=== PATIENT | male | born 1965 | race Asian ===

== ENCOUNTER 2017-07-12 08:01 | Outpatient (CLI) | payer OTHER ==
--- NOTE | 2017-07-12 13:27 | MRI Report ---
EXAM: RIGHT KNEE MRI WITHOUT CONTRAST EXAM DATE: 07/12/2017 08:48 AM. CLINICAL HISTORY: PAin in unspecified knee. COMPARISON: None. TECHNIQUE: Multiplanar, multisequence T1-weighted and fluid-sensitive sequences of the knee without c ontrast. Other: None. FINDINGS: Cruciate ligaments: The anterior and posterior cruciate ligaments appear intact. Medial meniscus: Intact. No tear is identified. Lateral meniscus: Intact. No tear is identified. Collateral limits: The medial and fibular collateral ligament appear intact. Bones and articular surfaces: Mild cartilage thinning and fissuring within the trochlea. Areas of sli ght cartilage thinning and surface irregularity in the medial and lateral compartments. No full thick ness articular cartilage defects are seen. Mild degree of patchy marrow edema within the patella. The re do not appear to be any significant associated articular cartilage defects. Extensor mechanism: The patellar tendon and quadriceps insertion appear intact. IMPRESSION: 1. Minimal tricompartmental degenerative cartilage changes. 2. Slight degree of patchy marrow edema within the patella. Possible bone contusion or stress-related edema. [facility]CULOSKE[facility] RADIOLOG[facility] SECTION Referring Provider Line: [phone] SITE ID: [id number]
== END 2017-07-12 08:02 | disposition home or self-care (01) ==
LOC: DI 08:01
PROVIDERS: ATTEND Family Medicine
DX: M25.561 Pain in right knee (principal)

== ENCOUNTER 2018-07-09 10:28 | Outpatient (CLI) | payer OTHER | END 2018-07-09 10:29 | disposition home or self-care (01) | LOC: SC 10:28 | PROVIDERS: ATTEND Internal Medicine Pulmonary Disease | DX: G47.33 Obstructive sleep apnea (adult) (pediatric) (principal); E66.9 Obesity, unspecified; Z68.30 Body mass index [BMI] 30.0-30.9, adult | CPT/HCPCS: 99203; 99212 ==

== ENCOUNTER 2018-07-19 19:29 | Outpatient (CLI) | payer OTHER | END 2018-07-19 19:30 | disposition home or self-care (01) | LOC: SC 19:29 | PROVIDERS: ATTEND Internal Medicine Pulmonary Disease | DX: G47.33 Obstructive sleep apnea (adult) (pediatric) (principal) | CPT/HCPCS: 95810 ==

== ENCOUNTER 2018-07-25 09:52 | Outpatient (CLI) | payer OTHER | END 2018-07-25 09:53 | disposition home or self-care (01) | LOC: SC 09:52 | PROVIDERS: ATTEND Nurse Practitioner Family | DX: G47.33 Obstructive sleep apnea (adult) (pediatric) (principal) | CPT/HCPCS: 99212; 99214 ==

== ENCOUNTER 2018-10-24 15:39 | Outpatient (CLI) | payer OTHER ==
[2018-10-24 16:44] VITALS: BP 100/60
--- NOTE | 2018-10-24 16:44 | SLEEP CARE CONSULTATION ---
Information from patient questionnaire entered by Genevieve Veronica. I have reviewed and concur with the information entered by Genevieve Veronica. This document represents the service I personally performed and the decisions made by me, Dbe Mcmanus, RN, MSN, HAND DRAWER IN. History of Present Illness Previous diagnosis: Severe, Obstructive Sleep Apnea-Hypopnea Syndrome AHI: 30.1 Reason for CPAP/BiPAP follow up: first compliance Equipment type: CPAP Equipment obtained from: [employer] Mask style: Nasal pillows (Dreamwear) Mask brand: Respironics Backup mask available: No (keep current mask when replaced as spare) Last cushion change: a month ago CPAP Compliance Data - Data Reviewed with Patient Average duration of nightly device use: 4.6 Compliance rate %: 90 Current pressure setting (cmH2O): 4-15 Humidity settin Heated hose settin Average residual AHI: 2.5 Average large leak: 2 mins 6 secs Subjective Patient concerns: reports: dry mouth, nose, throat (1-2 times a month ), other (patient is not putting mask back on after gets up to the bathroom. ). denies: aerophagia, mask discomfort, air blowing in eyes, mask leak noise, condensation in mask/hose, nasal congestion, epistaxis Observed to snore while using device: No Current pressure setting perceived as: comfortable On therapy, patient: reports: sleeping better, awakening more refreshed, being more awake and alert during the day, more rested overall. denies: drowsiness while driving Initial [place] Sleepiness Scale score: 17 Current [place] Sleepiness Scale score: 8 Allergies and Home Medications Known drug allergies: No Home medication list reviewed: Yes Allergy and home medication list: Metformin 1000 mg tab one twice daily Lisinopril 20mg tab one daily Atorvastatin 40mg tab one daily ProAir HFA 108 (90 base) Two puffs as needed Aspirin 81mg tab one daily Review of Systems Review of systems same as previous: Yes Physical Exam Blood Pressure: 100/60 Cuff size: long Heart Rate: 63 O2 Saturation: 98 Height: 5 ft 7 in Weight (kg): 201 lb 12.8 oz Body Mass Index: 31.6 BMI Classification: Class 1 Impression and Plan 1. Obstructive Sleep Apnea-Hypopnea Syndrome, severe, with good treatment compliance and good apnea control. Since his 90% pressue is 6.7cmH20, I will adjust his autoCPAP pressure to [id number]. He is advised to contact me if the pressure change is uncomfortable. On CPAP therapy, the patient has better sleep quality and is more rested overall. To prevent vent from bothering spouse, he can put a pillow barrier between them. Patient advised to put his mask on after getting up in target network analyst to use the restroom. He was informed how there is increased risk of apnea in later sleep due to REM sleep. He was also advised how maximum benefit of treatment is obtained with use of CPAP with all sleep. For oral dryness, he was shown how to adjust the humidity and heated hose on sample device. For now, he could reduce heated hose to 2 to deliver more moisture and adjust as needed. The heated hose would only need to be increased if condensation. Patient's apnea severity and rationale for treatment to reduce apnea, improve sleep quality and reduce cardiovascular and cerebrovascular events was reviewed. I also reviewed the benefit of consistent device use of CPAP for hypertension, diabetes. Since he is planning on losing weight, he was advised how significant weight loss can reduce CPAP pressure and symptoms to report for adjustment. * * Change CPAP pressure to 7-10 cmH2O * Adjust heated hose / humidity * pillow barrier to reduce vent effect * use CPAP with all sleep * Notify me if snoring with mask or feeling that the pressure is too much or too little * Attempt to lose weight * Return for follow up in 3 months, or sooner if concerns arise I spent 100% of this 30 minute visit face to face with the patient with greater than 50% of this was spent time counseling the patient and coordination of care.
== END 2018-10-24 15:40 | disposition home or self-care (01) ==
LOC: SC 15:39
PROVIDERS: ATTEND Nurse Practitioner Family
DX: G47.33 Obstructive sleep apnea (adult) (pediatric) (principal)
CPT/HCPCS: 99212; 99214

== ENCOUNTER 2019-01-24 13:42 | Outpatient (CLI) | payer OTHER ==
[2019-01-24 15:12] VITALS: BP 120/70
--- NOTE | 2019-01-24 15:12 | SLEEP CARE CONSULTATION ---
Information from patient questionnaire entered by Zehra Mondragon. I have reviewed and concur with the information entered by Zehra Mondragon. This document represents the service I personally performed and the decisions made by me, Deb Mcmanus, RN, MSN, SALES ATTENDANT BUILDING MATERIALS. History of Present Illness Previous diagnosis: Severe, Obstructive Sleep Apnea-Hypopnea Syndrome AHI: 30.1 Reason for follow up: three month Equipment type: CPAP Equipment obtained from: [employer] (contacted but no new supplies since set up) Mask style: Nasal pillows (Dreamwear) Mask brand: Respironics Backup mask available: No (Keep current mask when replaced) Last cushion change: none since set up Prior sleep studies: Yes HPI additional information: The pillow barrier worked to prevent his mask vent waking spouse. The adjustment of humidity and heated hose reduced dryness symptoms. CPAP Compliance Data - Data Reviewed with Patient Average duration of nightly device use: 6h 19m Compliance rate %: 91.1 Current pressure setting (cmH2O): 7-15 Humidity settin Heated hose settin Average residual AHI: 1.9 Average large leak: 26s Subjective Missed days of use due to: reports: travel (airline travel ) Patient concerns: denies: aerophagia, mask discomfort, air blowing in eyes, mask leak noise, condensation in mask/hose, nasal congestion, dry mouth, nose, throat, epistaxis Observed to snore while using device: No Current pressure setting perceived as: comfortable On therapy, patient: reports: sleeping better, awakening more refreshed, being more awake and alert during the day, more rested overall. denies: drowsiness while driving (none since CPAP ) Initial [place] Sleepiness Scale score: 17 Current [place] Sleepiness Scale score: 4 Allergies and Home Medications Known drug allergies: No Home medication list reviewed: Yes Allergy and home medication list: Medication Name (generic/name brand) Strength & Dosage Metformin 1000mg tab one daily Lisinopril 20mg tab one daily Atorvastatin 40mg tab one daily Aspirin 81mg tab one daily Review of Systems Review of systems same as previous: Yes Physical Exam Blood Pressure: 120/70 Cuff size: long Heart Rate: 71 O2 Saturation: 98 Height: 5 ft 7.5 in Weight: 208 lb 12.8 oz Weight change since last visit: gained 7 pounds Body Mass Index: 32.2 BMI Classification: Obesity Class 1 Impression and Plan 1. Obstructive Sleep Apnea-Hypopnea Syndrome, severe, with good treatment compliance and good apnea control. On CPAP therapy, the patient has better sleep quality and is more rested overall. He has more energy and is much more active than before CPAP. Patient has gained weight over holidays. thus I discussed how weight increase can increase his apnea risks and CPAP pressure and over all health risks. He is advised to lose weight. Methods to achieve discussed such as healthy food intake, reduction of refined foods, portion control and tracking diet intake. Weight watchers and other programs that track diet intake with support system and recipe ideas can be helpful. He can also discuss a diet consultation with his PCP. We looked at BMI chart and his goals for weight loss. He felt well at 171 pounds which would bring his BMI down to 25-26. As he loses weight he may need his CPAP pressure range reduced. To anticipate weight loss I will adjust his autoCPAP pressure to [id number]. He is to contact me if the pressure change in uncomfortable. Symptoms to report for further pressure reductions discussed. To reduce air hunger at initiation of therapy, I will reduce ramp time to 15 minutes. In addition, since he is having difficulty getting supplies, I will order and have my sales training coordinator inquire with [facility]. Patient's apnea severity and rationale for treatment to reduce apnea, improve sleep quality and reduce cardiovascular and cerebrovascular events was reviewed. I also reviewed the benefit of consistent device use of CPAP for hypertension, diabetes, gastric reflux, depression/anxiety. He has noted reduced blood pressure reading through out the day. * * Change CPAP pressure to 6-10 cmH2O * Notify me if snoring with mask or feeling that the pressure is too much or too little * reduce ramp time * Update supplies * Attempt to lose weight * Return for follow up in 6 months, or sooner if concerns arise I spent 100% of this 30 minute visit face to face with the patient with greater than 50% of this was spent time counseling the patient and coordination of care.
== END 2019-01-24 13:43 | disposition home or self-care (01) ==
LOC: SC 13:42
PROVIDERS: ATTEND Nurse Practitioner Family
DX: G47.33 Obstructive sleep apnea (adult) (pediatric) (principal)
CPT/HCPCS: 99212; 99214

== ENCOUNTER → 2019-08-26 | Outpatient (CLI) | payer OTHER ==
[2019-08-26 17:09] VITALS: BP 114/78
--- NOTE | 2019-08-26 17:09 | SLEEP CARE CONSULTATION ---
Information from patient questionnaire entered by Zehra Mondragon. I have reviewed and concur with the information entered by Zehra Mondragon. This document represents the service I personally performed and the decisions made by me, Deb Mcmanus, RN, MSN, SLIDER ASSEMBLER. History of Present Illness Service Date and Time: 08/26/2019 1600 Previous diagnosis: Severe, Obstructive Sleep Apnea-Hypopnea Syndrome AHI: 30.1 Reason for follow up: six month Equipment type: CPAP Equipment obtained from: [employer] (getting supplies as needed) Mask style: Nasal (Dreamwear) Mask brand: Respironics Backup mask available: Yes (old mask ) Last cushion change: 2 weeks ago Prior sleep studies: Yes Year and Where: 2018 [facility] Type of Sleep Study: Polysomnography HPI additional information: The change in pressure range and ramp resolved air hunger at initiation of treatment. CPAP Compliance Data - Data Reviewed with Patient Average duration of nightly device use: 5H 44M Compliance rate %: 94.4 Current pressure setting (cmH2O): 6-10 Humidity settin Heated hose settin Average residual AHI: 2.7 Average large leak: 7S Subjective Patient concerns: reports: mask leak noise (mask dislodging a few times a week), dry mouth, nose, throat (occasional dry nose a few times a months when mask dislodging ), other (mild frontal headache occasionally when questioned - seems related to over tightening mask ). denies: aerophagia, mask discomfort, air blowing in eyes, condensation in mask/hose, nasal congestion, epistaxis Observed to snore while using device: No Current pressure setting perceived as: comfortable On therapy, patient: reports: sleeping better, awakening more refreshed, being more awake and alert during the day, more rested overall. denies: drowsiness while driving Initial [place] Sleepiness Scale score: 17 Current [place] Sleepiness Scale score: 6 Allergies and Home Medications Known drug allergies: No Home medication list reviewed: No (no changes ) Review of Systems Review of systems same as previous: Yes Physical Exam Blood Pressure: 114/78 Cuff size: long Heart Rate: 66 O2 Saturation: 97 Height: 5 ft 7.5 in Weight: 199 lb 12.8 oz Weight change since last visit: lost 9 pounds Body Mass Index: 30.8 BMI Classification: Obese Impression and Plan 1. Obstructive Sleep Apnea-Hypopnea Syndrome, severe , with good treatment compliance and good apnea control. On CPAP therapy, the patient has better sleep quality and is more rested overall. His goal is to sleep 6- 7 hours and CPAP use is 5.44 hours but he will nap as well for about an hour without CPAP. Thus I reviewed the importance of using CPAP with all sleep to obtain maximum benefit from treatment. To prevent mask dislodging, I will order a Dreamwear headgear with arms. Patient has lost weight as advised. Currently patients BMI is 30.8 obesity class . Obesity increases the risk of apnea, CPAP pressure requirements and overall health risks especially cardiovascular and diabetes. Thus patient is advised to continue to lose weight. A diet consultation can be helpful in achieving optimal weight loss goals if unable to meet his goals. The BMI chart was reviewed. The patient would like to reduce to 10 more pounds in the next 6 months bringing their BMI down to about 29. Patient encouraged to discuss their weight loss goals with their PCP and consider a referral to a it systems analyst consultant. The patient's CPAP pressure range should accommodate some weight loss. Symptoms to report for additional pressure adjustment discussed. Occasional mild headache that seems to be related to overtightening mask. If not resolved with mask adjustment, he is to follow up with PCP for further evaluation. Patient's apnea severity and rationale for treatment to reduce apnea, improve sleep quality and reduce cardiovascular and cerebrovascular events was reviewed. * Continue auto CPAP pressure at 6-10 cmH2O * Headgear with arms * Use CPAP with all sleep * Notify me if snoring with mask or feeling that the pressure is too much or too little * Attempt to lose weight * Call this office if any problems using CPAP * Return for follow up in 1 year , or sooner if concerns arise Counseling Topics: Weight loss health impact Visit Type: In Office Time Spent with Patient (minutes): 28 Provider Statement: I spent 100% of the Face to Face Visit with the patient with greater than 50% spent counseling the patient and coordination of care.
== END ==
LOC: SC 16:00
PROVIDERS: ATTEND Nurse Practitioner Family
DX: G47.33 Obstructive sleep apnea (adult) (pediatric) (principal); E66.9 Obesity, unspecified; Z68.30 Body mass index [BMI] 30.0-30.9, adult
CPT/HCPCS: 99212; 99214

== ENCOUNTER 2020-03-02 14:16 | Outpatient (CLI) | payer OTHER ==
--- NOTE | 2020-03-02 14:58 | SLEEP CARE CONSULTATION ---
Information from patient questionnaire entered by Genevieve Veronica. I have reviewed and concur with the information entered by Genevieve Veronica. This document represents the service I personally performed and the decisions made by me, Iva Bhakta MD, [facility]. History of Present Illness Service Date and Time: 03/02/2020 1416 Previous diagnosis: Severe, Obstructive Sleep Apnea-Hypopnea Syndrome AHI: 30.1 (in 2018) Reason for follow up: first compliance after device update (new machine through the [place]), six month Equipment type: CPAP Equipment obtained from: Other ([facility] - new effective 12/2019) Mask style: Nasal Mask brand: Respironics (Dreamwear) Prior sleep studies: Yes Year and Where: 2018 - [facility]; 2007 - [place], [place] Type of Sleep Study: Polysomnography HPI additional information: HPI: Mr. Blair was called today to follow up on the nasal CPAP therapy. He was diagnosed to have severe obstructive sleep apnea-hypopnea syndrome. The patient wears a Respironics DreamWear nasal cushion mask. His ResMed AirSense 10 came from the [facility] in [place]. He reports using the device nightly and all through the night. The compliance report shows usage in 29 nights out of the past 30 nights, averaging 8.2 hours a night. The > 4 hour compliance rate for the past 30 days is 100%. He complained of no particular problem with the device such as soreness on the face, dry nose, epistaxis, nasal congestion or h eadache. He thinks that the pressure of 6 10 cmH2O is comfortable. On the CPAP therapy he notices improvement in his sleep quality, and that he wakes up feeling fresher in the morning and more awake/alert during the day. His notices no snore at all. The average residual AHI is 0.3; and average air leak is 0.3 L/minute. The 90th percentile pressure is 9 cmH2O. CPAP Compliance Data - Data Reviewed with Patient Average duration of nightly device use: 8 hr 12 min Compliance rate %: 97 Current pressure setting (cmH2O): 6-10 Humidity settin Average residual AHI: 0.3 Subjective Missed days of use due to: reports: travel Patient concerns: reports: other (headache-a little) Initial Ste[place]man Sleepiness Scale score: 17 (in 2019) Current Ste[place] Sleepiness Scale score: 8 Allergies and Home Medications Drug allergies reviewed: Yes Home medication list reviewed: Yes Review of Systems Review of systems same as previous: Yes Physical Exam Vital signs obtained and entered by: To minimize the risk of COVID-19 exposure, detailed exam was not performed. Height: 5 ft 7.5 in Weight: 206 lb Body Mass Index: 31.8 BMI Classification: Obese Impression and Plan IMPRESSION: 1. Obstructive Sleep Apnea-Hypopnea Syndrome, severe (AHI = 30.1), with the patient doing well on nasal CPAP therapy. He has excellent compliance and significant clinical improvement. The current pressure appears effective and comfortable. His mask fits well. Overall, he is very satisfied with treatment and plans to continue with it long-term. No adjustment is necessary today. PLAN: 1. Continue with autoCPAP set at 6 - 10 cmH2O. 2. Try to lose weight 3. Try ResMed N30i mask. [facility] 4. Return in one year for follow up or earlier if there is any problem with the treatment. Visit Type: In Office Time Spent with Patient (minutes): 20 Provider Statement: I spent 100% of the Face to Face Visit with the patient with greater than 50% spent counseling the patient and coordination of care.
== END 2020-03-02 14:17 | disposition home or self-care (01) ==
LOC: SC 14:16
PROVIDERS: ATTEND Internal Medicine Pulmonary Disease
DX: G47.33 Obstructive sleep apnea (adult) (pediatric) (principal); E66.9 Obesity, unspecified; Z68.31 Body mass index [BMI] 31.0-31.9, adult
CPT/HCPCS: 99212; 99213

== ENCOUNTER 2020-07-17 16:37 | Emergency (ER) | payer OTHER ==
--- OUTSIDE RECORDS SUMMARY | 2020-07-17 16:53 | EXTERNAL MEDICAL SUMMARY RPT | Continuity of Care Document ---
:1965 Demographics Phone Unavailable Preferred Language Unknown Marital Status Unknown Cheondoism Affiliation Unknown Race Unknown Ethnic Group Unknown Author Organization [facility] Address [address] [place] [address] Phone Allergies Encounters Medications Problems Results
[2020-07-17] MEDS ORDERED: KETOROLAC 30 MG/ML VIAL IVP STA (17:06)
[2020-07-17] MEDS ORDERED: SODIUM CHLORIDE 0.9% 1,000 ML IV STA (17:06)
[2020-07-17] MEDS ORDERED: ACETAMINOPHEN 325 MG TABLET PO STA (17:06)
--- NOTE | 2020-07-17 17:08 | ED Physician Documentation ---
PD HPI HEENT - Stated complaint Stated Complaint: FEVER/BACK & RIB PX - Chief complaint Chief Complaint: Fever - History obtained from History obtained from: Patient - Additional information Additional information: 55-year-old gentleman with history of type 2 diabetes hypertension and remote history of pericarditis presents with 5 days of left flank and back pain and fever. He has some urinary frequency associated with this and dark urine but no dysuria. He denies significant cough. No runny nose or sore throat. He is fully immunized against Covid having had his second shot towards the beginning of May. No recent travel. No sick contacts. Review of Systems Ten Systems: 10 systems reviewed and negative Constitutional: reports: Fever, Chills. denies: Myalgias, Fatigue Nose: denies: Rhinorrhea / runny nose Throat: denies: Sore throat Cardiac: denies: Chest pain / pressure, Palpitations Respiratory: denies: Dyspnea, Cough PD PAST MEDICAL HISTORY - Present Medications Home Medications: Ambulatory Orders Medication Instructions Recorded Confirmed Amoxicillin/Potassium Clav 2 each PO BID 7 Days 07/17/20 [Augmentin Xr 1,000-62.5 Tab] Aspirin [[place] Aspirin] 1 tab PO DAILY 07/17/20 07/17/20 Atorvastatin Calcium 1 tab PO DAILY 07/17/20 07/17/20 Azithromycin [Zithromax] 250 mg PO DAILY #4 tablet 07/17/20 Lisinopril [Zestril] 1 tab PO DAILY 07/17/20 07/17/20 Metformin HCl [Metformin ER 1 tab PO DAILY 07/17/20 07/17/20 Gastric] - Allergies Allergies/Adverse Reactions: Allergies Allergy/AdvReac Type Severity Reaction Status Date / Time No Known Drug Allergies Allergy Verified 07/17/20 17:01 PD ED PE NORMAL - Vitals Vital signs reviewed: Yes - General General: Alert and oriented X 3, No acute distress - HEENT HEENT: PERRL, EOMI - Neck Neck: Supple, no meningeal sign, No bony TTP - Cardiac Cardiac: RRR, No murmur - Respiratory Respiratory: Other (rhonchi L base) - Abdomen Abdomen: Non tender - Back Back: No CVA TTP - Derm Derm: Normal color, Warm and dry - Extremities Extremities: No edema, No calf tenderness / cord - Neuro Neuro: Alert and oriented X 3, Normal speech Results - Vitals Vitals: Vital Signs - 24 hr 07/17/20 07/17/20 07/17/20 16:47 18:23 19:40 Temperature 39.3 C H 39.3 C H 37.2 C Heart Rate 81 65 60 Respiratory 20 12 20 Rate Blood Pressure 120/79 108/68 101/74 O2 Saturation 96 95 100 Oxygen O2 Source Room air - EKG (time done) 1654 Rate: Rate (enter#) (79) Rhythm: NSR [place]: Normal Intervals: Normal MI QRS: Normal Ischemia: Normal ST segments, Other (IVCD) - Labs Labs: Laboratory Tests 07/17/20 07/17/20 07/17/20 17:06 17:06 17:06 WBC 7.3 RBC 5.01 Hgb 13.5 L Hct 42.3 MCV 84.4 MCH 26.9 L MCHC 31.9 L RDW 12.0 Plt Count 250 MPV 10.0 Neut # (Auto) 5.2 Lymph # (Auto) 1.2 L Brooks # (Auto) 0.8 Eos # (Auto) 0.0 Baso # (Auto) 0.0 Absolute Nucleated RBC 0.00 Nucleated RBC % 0.0 Sodium 132 L Potassium 4.3 Chloride 96 L Carbon Dioxide 24 Anion Gap 12.0 BUN 10 Creatinine 1.0 Estimated GFR (MDRD) 78 L Glucose 131 H Lactic Acid 2.0 Calcium 8.8 Total Bilirubin 0.5 AST 207 H ALT 124 H Alkaline Phosphatase 78 Total Protein 7.6 Albumin 4.0 Globulin 3.6 Albumin/Globulin Ratio 1.1 Urine Color Urine Clarity Urine pH Ur Specific [place] Urine Protein Urine Glucose (UA) Urine Ketones Urine Occult Blood Urine Nitrite Urine Bilirubin Urine Urobilinogen Ur Leukocyte Esterase Urine RBC Urine WBC Ur Squamous Epith Cells Urine Bacteria Urine Mucus Urine Culture Comments Nasal Adenovirus (PCR) Nasal B. parapertussis DNA (PCR) Nasal Coronavir 229E PCR Nasal Coronavir HKU1 PCR Nasal Coronavir NL63 PCR Nasal Coronavir OC43 PCR Nasal Enterovir/Rhinovir PCR Nasal Influenza B PCR Nasal Influenza A PCR Nasal Parainfluen 1 PCR Nasal Parainfluen 2 PCR Nasal Parainfluen 3 PCR Nasal Parainfluen 4 PCR Nasal RSV (PCR) Nasal B.pertussis DNA PCR Nasal C.pneumoniae (PCR) Geoffrey Human Metapneumo PCR Nasal M.pneumoniae (PCR) Nasal SARS-CoV-2 (PCR) 07/17/20 07/17/20 17:20 17:35 WBC RBC Hgb Hct MCV MCH MCHC RDW Plt Count MPV Neut # (Auto) Lymph # (Auto) Brooks # (Auto) Eos # (Auto) Baso # (Auto) Absolute Nucleated RBC Nucleated RBC % Sodium Potassium Chloride Carbon Dioxide Anion Gap BUN Creatinine Estimated GFR (MDRD) Glucose Lactic Acid Calcium Total Bilirubin AST ALT Alkaline Phosphatase Total Protein Albumin Globulin Albumin/Globulin Ratio Urine Color YELLOW Urine Clarity CLEAR Urine pH 7.0 Ur Specific [place] 1.020 Urine Protein 100 H Urine Glucose (UA) NEGATIVE Urine Ketones NEGATIVE Urine Occult Blood MODERATE H Urine Nitrite NEGATIVE Urine Bilirubin NEGATIVE Urine Urobilinogen 1 (NORMAL) Ur Leukocyte Esterase NEGATIVE Urine RBC 6-10 H Urine WBC 0-3 Ur Squamous Epith Cells FEW Squamous Urine Bacteria Rare Urine Mucus Few Strands Urine Culture Comments NOT INDICATED Nasal Adenovirus (PCR) NOT DETECTED Nasal B. parapertussis DNA (PCR) NOT DETECTED Nasal Coronavir 229E PCR NOT DETECTED Nasal Coronavir HKU1 PCR NOT DETECTED Nasal Coronavir NL63 PCR NOT DETECTED Nasal Coronavir OC43 PCR NOT DETECTED Nasal Enterovir/Rhinovir PCR NOT DETECTED Nasal Influenza B PCR NOT DETECTED Nasal Influenza A PCR NOT DETECTED Nasal Parainfluen 1 PCR NOT DETECTED Nasal Parainfluen 2 PCR NOT DETECTED Nasal Parainfluen 3 PCR NOT DETECTED Nasal Parainfluen 4 PCR NOT DETECTED Nasal RSV (PCR) NOT DETECTED Nasal B.pertussis DNA PCR NOT DETECTED Nasal C.pneumoniae (PCR) NOT DETECTED [place] Human Metapneumo PCR NOT DETECTED Nasal M.pneumoniae (PCR) NOT DETECTED Nasal SARS-CoV-2 (PCR) NOT DETECTED PD MEDICAL DECISION MAKING - ED course ED course: Despite the lack of cough clinically it sounds like he has pneumonia. 55-year-old gentleman who is fully immunized against Covid presents with left flank pain and fever 5 days duration. He has no cough but clinically had pneumonia. His x-ray was negative for same but I still have my doubts and was sent for a CT which did catch the left lower lobe pneumonia that was radio occult on chest x-ray. He was administered Rocephin IV and oral Zithromax here. Departure - Departure Disposition: 01 Home, Self Care Clinical Impression: Flank pain Fever Qualifiers: Fever type: due to other condition Qualified Code(s): R50.81 - Fever presenting with conditions classified elsewhere Pneumonia Qualifiers: Pneumonia type: due to unspecified organism Laterality: left Lung location: lower lobe of lung Qualified Code(s): J18.9 - Pneumonia, unspecified organism Condition: Good Record reviewed to determine appropriate education?: Yes Instructions: Pneumonia Dc Prescriptions: Amoxicillin/Potassium Clav [Augmentin Xr 1,000-62.5 Tab] 2 each PO BID 7 Days Azithromycin [Zithromax] 250 mg PO DAILY #4 tablet Comments: Your fever and flank pain are due to a left lower lobe pneumonia. This should be treated well with the antibiotics I am prescribing you. That said return if worsening. Follow-up with your primary care physician middle of next week for recheck. Follow-up with your physician to check subsequent x-rays to make sure the pneumonia goes completely away. You can and should take Tylenol and/or ibuprofen as needed for the fever and pain. Drink plenty of fluids.
[2020-07-17 17:31] LABS: BASOPHILS % (AUTO) 0.4 %; EOSINOPHILS % (AUTO) 0.5 %; HCT - HEMATOCRIT 42.3 % (42.0-52.0); HGB - HEMOGLOBIN 13.5 g/dL (14.0-18.0); LYMPHOCYTES # (AUTO) 1.2 10^3/uL (1.5-3.5); MEAN CORPUSCULAR HEMOGLOBIN 26.9 pg (27.0-31.0); MEAN CORPUSCULAR HGB CONC 31.9 g/dL (32.0-36.0); MEAN CORPUSCULAR VOLUME 84.4 fL (80.0-94.0); MONOCYTES # (AUTO) 0.8 10^3/uL (0.0-1.0); MONOCYTES % (AUTO) 10.8 %; NEUTROPHILS # (AUTO) 5.2 10^3/uL (1.5-6.6); NEUTROPHILS % (AUTO) 70.9 %; PLT - PLATELET COUNT 250 10^3/uL (130-450); RED BLOOD COUNT 5.01 10^6/uL (4.70-6.10); WHITE BLOOD COUNT 7.3 x10^3/uL (4.8-10.8)
[2020-07-17 17:39] LABS: ALBUMIN/GLOBULIN RATIO 1.1 (1.0-2.2); BILIRUBIN,TOTAL 0.5 mg/dL (0.2-1.0); CALCIUM 8.8 mg/dL (8.5-10.3); POTASSIUM 4.3 mmol/L (3.5-5.0); TOTAL PROTEIN 7.6 g/dL (6.7-8.2)
[2020-07-17 17:45] LABS: BILIRUBIN,URINE NEGATIVE (NEGATIVE); GLUCOSE, URINE (UA) NEGATIVE (NEGATIVE); KETONES,URINE (UA) NEGATIVE (NEGATIVE); LEUKOCYTE ESTERASE, URINE NEGATIVE (NEGATIVE); NITRITE,URINE NEGATIVE (NEGATIVE); OCCULT BLOOD,URINE MODERATE (NEGATIVE); PROTEIN,URINE 100 mg/dL (NEGATIVE); UROBILINOGEN,URINE 1 (NORMAL) E.U./dL (NORMAL)
[2020-07-17 17:46] LABS: BACTERIA,URINE Rare /HPF (None Seen); CLARITY,URINE CLEAR (CLEAR); MUCUS,URINE Few Strands; SQUAMOUS EPITHELIAL CELL,UR FEW Squamous (<= Few); WBC,URINE 0-3 /HPF (0-3)
--- NOTE | 2020-07-17 17:52 | XRAY Report ---
PROCEDURE: Chest 1 View X-Ray INDICATIONS: cough TECHNIQUE: One view of the chest was acquired. COMPARISON: None. FINDINGS: Surgical changes and devices: None. Lungs and pleura: No pleural effusions or pneumothorax. Lungs are clear. Mediastinum: Mediastinal contours appear normal. Heart size is normal. Bones and chest wall: No suspicious bony lesions. Overlying soft tissues appear unremarkable. IMPRESSION: No acute cardiopulmonary abnormality. Reviewed by: Zach Cooper MD on 07/17/2020 5:51 PM PDT Approved by: Zach Cooper MD on 07/17/2020 5:51 PM PDT Station ID: [id number]
[2020-07-17 18:18] LABS: B. PARAPERTUSSIS- RESP PCR PAN NOT DETECTED; B. PERTUSSIS- RESP PCR PANEL NOT DETECTED; C. PNEUMONIAE- RESP PCR PANEL NOT DETECTED; CORONAVIRUS 229E-RESP PCR NOT DETECTED; CORONAVIRUS HKU1-RESP PCR NOT DETECTED; CORONAVIRUS NL63-RESP PCR NOT DETECTED; CORONAVIRUS OC43-RESP PCR NOT DETECTED; HUMAN METAPNEUMOVIRUS NOT DETECTED; INFLUENZA A- RESP PCR PANEL NOT DETECTED; INFLUENZA B - RESP PCR PANEL NOT DETECTED; M. PNEUMONIAE- RESP PCR PANEL NOT DETECTED; PARAINFLUENZA VIRUS 1 NOT DETECTED; PARAINFLUENZA VIRUS 2 NOT DETECTED; PARAINFLUENZA VIRUS 3 NOT DETECTED; PARAINFLUENZA VIRUS 4 NOT DETECTED; RHINOVIRUS/ENTEROVIRUS NOT DETECTED; RSV- RESP PCR PANEL NOT DETECTED; SARS-CoV-2 -RESP PCR PANEL NOT DETECTED
[2020-07-17] MEDS ORDERED: IOVERSOL 320 100 ML VIAL IVP ONE ×2 (18:22→20:11)
[2020-07-17] MEDS ORDERED: cefTRIAXone 1 GM in SODIUM CHLORIDE 0.9% MINIBAG 100 ML IV STA (19:25)
[2020-07-17] MEDS ORDERED: AZITHROMYCIN 250 MG TABLET PO STA (19:25)
[2020-07-17] MEDS ORDERED: cefTRIAXone 1 GM VIAL ONE (19:30)
--- NOTE | 2020-07-17 19:44 | CT Report ---
PROCEDURE: Abdomen/Pelvis W INDICATIONS: IV only, L side pain and fever CONTRAST: IV CONTRAST: Optiray 320 ml: 100 PO CONTRAST: *NO PO CONTRAST TECHNIQUE: After the administration of intravenous contrast, 5 mm thick sections acquired from the diaphragms to the symphysis. 5 mm thick coronal and sagittal reformats were acquired. For radiation dose reducti on, the following was used: automated exposure control, adjustment of mA and/or kV according to kitty ent size. COMPARISON: CXR earlier today. FINDINGS: Image quality: Excellent. ABDOMEN: Lung bases: Left lower lobe groundglass opacity, (4/28). Trace effusion. Small paraesophageal lymph node, (3/22). Small left infrahilar lymph node measuring 0.9 cm, (3/7). Favor reactive etiology. Hear t size is normal. Solid organs: Liver and spleen are normal in size and enhancement. Gallbladder is unremarkable. Bi liary system is non dilated. Pancreas enhances normally. No adrenal nodules. Kidneys demonstrate n ormal size and enhancement, without hydronephrosis. Peritoneum and bowel: Bowel loops demonstrate normal wall thickness and caliber. Small duodenal dive rticulum. A few colonic diverticuli. Normal appendix. No free fluid or air. Nodes and vessels: No retroperitoneal or mesenteric adenopathy by size criteria. Aorta and inferior vena cava are normal in size. Miscellaneous: No ventral hernias. PELVIS: Genitourinary: Bladder is unremarkable. Miscellaneous: No inguinal hernias or adenopathy. Bones: No suspicious bony lesions. No vertebral body compression fractures. IMPRESSION: 1. Left lower lobe airspace opacity most consistent with pneumonia. -Recommend follow-up to resolution with 2-view chest radiograph in a few weeks. 2. Small left hilar and paraesophageal nodes. Favor reactive etiology. 3. No acute process is identified in the abdomen or pelvis. No free fluid. Reviewed by: Zach Cooper MD on 07/17/2020 7:42 PM PDT Approved by: Zach Cooper MD on 07/17/2020 7:42 PM PDT Station ID: [id number]
[2020-07-17 20:18] VITALS: BP 108/72
== END 2020-07-17 20:17 | disposition home or self-care (01) ==
LOC: ED 16:37
DX: J18.9 Pneumonia, unspecified organism (principal); E11.9 Type 2 diabetes mellitus without complications; Z79.84 Long term (current) use of oral hypoglycemic drugs; I10 Essential (primary) hypertension; Z20.822 Contact with and (suspected) exposure to COVID-19
CPT/HCPCS: 0202U; 36415; 71045; 74177; 80053; 81001; 83605; 85025; 87040; 93005; 96361; 96365; 96375; 99284; A9270; Q9967; 87086